=== PATIENT | female | born 1965 | race Caucasian/White ===

== ENCOUNTER → 2018-08-14 | Outpatient (CLI) | payer OTHER | END | disposition home or self-care (01) | LOC: LAB SHORT 08:19 → PLD 08:19 | DX: D36.12 Benign neoplasm of peripheral nerves and autonomic nervous system, upper limb, including shoulder (principal) | CPT/HCPCS: 88305 ==

== ENCOUNTER 2020-11-26 16:40 | Inpatient (IN) | payer OTHER ==
[~2020-11-26] VITALS: Ht 167.6 cm; Wt 71.3 kg
[2020-11-26 17:23] LABS: BASOPHILS ABSOLUTE AUTO 0.02 K/mm3 (0.00-0.23); BASOPHILS PERCENT AUTO 0 % (0-2); EOSINOPHILS PERCENT AUTO 0 % (0-6); Hematocrit 45.4 % (33.0-51.0); Hemoglobin 15.2 g/dL (11.5-16.0); IMMATURE GRAN ABSOLUTE AUTO 0.05 K/mm3 (0.00-0.10); IMMATURE GRAN PERCENT AUTO 0 % (0-1); LYMPHOCYTES ABSOLUTE AUTO 1.45 K/mm3 (0.84-5.20); LYMPHOCYTES PERCENT AUTO 12 % (21-46); MONOCYTES ABSOLUTE AUTO 0.59 K/mm3 (0.16-1.47); MONOCYTES PERCENT AUTO 5 % (4-13); Mean Corpuscular HGB 27.6 pg (26.0-34.0); Mean Corpuscular HGB Conc 33.5 g/dL (31.5-36.5); Mean Corpuscular Volume 82 fL (80-100); Mean Platelet Volume 8.9 fL (9.1-12.4); NEUTROPHILS ABSOLUTE AUTO 10.41 K/mm3 (1.96-9.15); NEUTROPHILS PERCENT AUTO 83 % (41-73); Platelet Count 230 K/mm3 (150-400); RDW Coefficient Variation 12.1 % (11.7-14.2); RDW Standard Deviation 36.9 fL (35.1-46.3); Red Blood Cell Count 5.51 M/mm3 (3.80-5.20); White Blood Cell Count 12.52 K/mm3 (4.00-11.30)
[2020-11-26] MEDS ORDERED: SERT100 PO (17:38)
[2020-11-26 17:42] LABS: Alanine Aminotransfer (ALT/SGP 32 U/L (12-78); Albumin, Blood 4.1 g/dL (3.4-5.0); Albumin/Globulin Ratio 1.1 (0.8-1.8); Alk Phos 76 U/L (50-136); Anion Gap 12 mmol/L (6-16); Aspartate Aminotrans (AST/SGOT 22 U/L (12-37); Bilirubin, Total 0.5 mg/dL (0.1-1.0); Blood Urea Nitrogen 11 mg/dL (8-24); Bun/Creatinine Ratio 20.4 (12.0-20.0); CO2, Blood 17 mmol/L (21-32); Calcium, Blood 9.8 mg/dL (8.5-10.1); Chloride, Blood 109 mmol/L (98-108); Creatinine, Blood 0.54 mg/dL (0.40-1.00); Globulin, Blood 3.9 g/dL (2.2-4.0); Glomerular Filtration Rate >60 (60-); Glucose, Blood 160 mg/dL (70-99); Potassium, Blood 3.5 mmol/L (3.5-5.5); Sodium, Blood 138 mmol/L (136-145)
[2020-11-26 17:47] LABS: Source, Urine Clean Catch
[2020-11-26 17:49] LABS: Appearance, Urine Hazy (Clear); Bilirubin, Urine Neg (Neg); Blood, Urine Neg (Neg); Color, Urine Yellow (P-Yellow); Glucose Qualitative, Urine Neg (Neg); Ketones, Urine 4+ (Neg); Leukocyte Esterase, Urine 3+ (Neg); Nitrite, Urine Neg (Neg); Protein, Urine 1+ (Neg); Specific Gravity, Urine 1.015 (1.003-1.022); Urobilinogen, Urine NORM (Normal)
[2020-11-26 17:57] LABS: White Blood Cells, Urine TNTC /hpf (0-5)
[2020-11-26 17:58] LABS: Bacteria Many /hpf; Red Blood Cells, Urine 0-2 /hpf (0-2); Squamous Epithelial Cells Few /hpf (Few)
[2020-11-26] MEDS ORDERED: LAMO100 PO (21:24)
[2020-11-27 00:42] LABS: Influenza A, PCR Negative (NEGATIVE); Influenza B, PCR Negative (NEGATIVE); Resp Syncytial Virus, PCR Negative (NEGATIVE); SARS-Cov-2 (COVID-19) PCR, MMC Negative (NEGATIVE)
[2020-11-27 04:40] LABS: BASOPHILS ABSOLUTE AUTO 0.01 K/mm3 (0.00-0.23); BASOPHILS PERCENT AUTO 0 % (0-2); EOSINOPHILS ABSOLUTE AUTO 0.04 K/mm3 (0.00-0.68); EOSINOPHILS PERCENT AUTO 1 % (0-6); Hematocrit 42.2 % (33.0-51.0); Hemoglobin 13.7 g/dL (11.5-16.0); IMMATURE GRAN ABSOLUTE AUTO 0.02 K/mm3 (0.00-0.10); IMMATURE GRAN PERCENT AUTO 0 % (0-1); LYMPHOCYTES ABSOLUTE AUTO 1.39 K/mm3 (0.84-5.20); LYMPHOCYTES PERCENT AUTO 16 % (21-46); MONOCYTES ABSOLUTE AUTO 0.86 K/mm3 (0.16-1.47); MONOCYTES PERCENT AUTO 10 % (4-13); Mean Corpuscular HGB Conc 32.5 g/dL (31.5-36.5); Mean Corpuscular Volume 86 fL (80-100); NEUTROPHILS ABSOLUTE AUTO 6.56 K/mm3 (1.96-9.15); NEUTROPHILS PERCENT AUTO 74 % (41-73); Platelet Count 189 K/mm3 (150-400); RDW Coefficient Variation 12.7 % (11.7-14.2); RDW Standard Deviation 39.8 fL (35.1-46.3); Red Blood Cell Count 4.89 M/mm3 (3.80-5.20); White Blood Cell Count 8.88 K/mm3 (4.00-11.30)
[2020-11-27 04:57] LABS: Anion Gap 6 mmol/L (6-16); Blood Urea Nitrogen 10 mg/dL (8-24); CO2, Blood 27 mmol/L (21-32); Calcium, Blood 8.2 mg/dL (8.5-10.1); Chloride, Blood 111 mmol/L (98-108); Creatinine, Blood 0.71 mg/dL (0.40-1.00); Glomerular Filtration Rate >60 (60-); Glucose, Blood 119 mg/dL (70-99); Potassium, Blood 4.1 mmol/L (3.5-5.5); Sodium, Blood 144 mmol/L (136-145)
--- NOTE | 2020-11-27 05:47 | NUR ---
SHIFT SUMMARY S/P SBO, A/O X4, VSS, NPO SINCE ADMIT W/ SMALL SIPS OF WATER WHEN TAKING BEDTIME MEDS (SEE EMAR), LANDON CONSULTED AND SPOKE TO PT ABOUT POSSIBLE SURGERY TODAY PENDING CONDITION IN THE MORNING, PT REPORTS FEELING INCREASED ANXIETY ABOUT HAVING SURGERY AND HAS REQUESTED BE ALLOWED TO COME IN TO ASSIST W/ SURGICAL DECISIONS. PAIN WELL CONTROLLED W/ DILAUDID WALLPAPER HANGER, IV FLUIDS INFUSING, NO ACUTE CHANGES OVERNIGHT. CALL LIGHT IN REACH, WILL CONTINUE TO MONITOR AND REPORT TO ONCOMING DAY RN.
--- NOTE | 2020-11-27 18:18 | NUR ---
SHIFT SUMMARY PT A&OX4, VSS. NPO/SBO. DENIES N&V. DENIES BELCHING OR FLATUS. PAIN MANAGED WITH KENNEL STAFF MEMBER DEMAND. AMBULATING INDEPENDENTLY IN ROOM, AND IN HALLWAY, TO BRP. VOIDING WELL. KPAD ON. TCDB & I.S. EDU & ENC, PT DEMONSTRATED. WILL REPORT TO ONCOMING SANJU RN.
[2020-11-28 05:29] LABS: BASOPHILS ABSOLUTE AUTO 0.01 K/mm3 (0.00-0.23); BASOPHILS PERCENT AUTO 0 % (0-2); EOSINOPHILS ABSOLUTE AUTO 0.05 K/mm3 (0.00-0.68); EOSINOPHILS PERCENT AUTO 1 % (0-6); Hematocrit 38.5 % (33.0-51.0); Hemoglobin 12.1 g/dL (11.5-16.0); IMMATURE GRAN ABSOLUTE AUTO 0.01 K/mm3 (0.00-0.10); IMMATURE GRAN PERCENT AUTO 0 % (0-1); LYMPHOCYTES ABSOLUTE AUTO 1.48 K/mm3 (0.84-5.20); LYMPHOCYTES PERCENT AUTO 25 % (21-46); MONOCYTES ABSOLUTE AUTO 0.59 K/mm3 (0.16-1.47); MONOCYTES PERCENT AUTO 10 % (4-13); Mean Corpuscular HGB 27.5 pg (26.0-34.0); Mean Corpuscular HGB Conc 31.4 g/dL (31.5-36.5); Mean Corpuscular Volume 88 fL (80-100); Mean Platelet Volume 8.8 fL (9.1-12.4); NEUTROPHILS ABSOLUTE AUTO 3.77 K/mm3 (1.96-9.15); NEUTROPHILS PERCENT AUTO 64 % (41-73); Platelet Count 157 K/mm3 (150-400); RDW Coefficient Variation 12.7 % (11.7-14.2); RDW Standard Deviation 40.9 fL (35.1-46.3); White Blood Cell Count 5.91 K/mm3 (4.00-11.30)
[2020-11-28 06:01] LABS: Anion Gap 3 mmol/L (6-16); Blood Urea Nitrogen 9 mg/dL (8-24); Bun/Creatinine Ratio 14.2 (12.0-20.0); CO2, Blood 29 mmol/L (21-32); Calcium, Blood 7.8 mg/dL (8.5-10.1); Chloride, Blood 109 mmol/L (98-108); Creatinine, Blood 0.64 mg/dL (0.40-1.00); Glomerular Filtration Rate >60 (60-); Glucose, Blood 89 mg/dL (70-99); Potassium, Blood 3.7 mmol/L (3.5-5.5); Sodium, Blood 141 mmol/L (136-145)
--- NOTE | 2020-11-28 07:27 | NUR ---
SHIFT SUMMARY: MARCUS IS A&OX4. VSS, NO ACUTE EVENTS OVERNIGHT. NO DIFFICULTIES WITH URINATION. SHE REPORTS SLEEPING INTERMITTNETLY DURING THE NIGHT. 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 SHE DID HAVE POSTIVIE BT IN THREE QUADRANTS THIS AM. SHE IS INDEPENDENT IN THE ROOM. SHE IS LYING IN BED WITH HER CALL LIGHT IN REACH. WILL REPORT TO DAY SHIFT RN.
--- NOTE | 2020-11-28 18:32 | NUR ---
SHIFT SUMMARY PT A&OX4, VSS. SBO, NPO, DENIES N&V, DENIES FLATUS, MILD DISTENSION, VOIDING, AMBULATING IN ROOM, TO BRP AND IN HALLWAY. PAIN MANAGED WITH MOTEL MAID. WILL REPORT TO ONCOMING NOC RN.
--- NOTE | 2020-11-29 03:19 | NUR ---
MARCUS REPORTS INCREASED ABDOMINAL PRESSURE, DISTENSION AND PAIN. SHE REMAINS UNCERTAIN IF SHE WANTS TO HAVE SURGICAL INTERVENTION OR NOT. SHE IS BELCHING, BUT HAS NOT PASSED GAS.
--- NOTE | 2020-11-29 05:13 | NUR ---
SHIFT SUMMARY: MARCUS IS A&OX4. VSS, NO ACUTE EVENTS OVERNIGHT. SHE REPORTS ADEQUATE PAIN CONTROL WITH THE DILAUDID BIOINFORMATICS ENGINEER. SHE REMAINS NPO EXCEPT FOR HER NIGHTTIME MEDICATIONS. SHE IS INDEPENDENT IN THE ROOM. IV TO L AC PATENT. SHE IS USING THE KPAD FOR COMFORT. SHE IS LYING IN BED WITH HER CALL LIGHT IN REACH. WILL REPORT TO DAY SHIFT RN.
--- NOTE | 2020-11-29 07:37 | NUR ---
ATTEMPTED TO PLACE NG TUBE. UNABLE TO ADVANCE TUBE INTO EITHER NARE DESPITE MULTIPLE ATTEMPS. PT TOLERATED ATTEMPTS WELL. PHYSICIAN NOTIFIED.
--- NOTE | 2020-11-29 09:15 | NUR ---
PLACED SCUDS ON PT. EXPLAINED REASON FOR THEM AND HOW TO TAKE THEM OFF FOR AMBULATING.
--- NOTE | 2020-11-29 14:53 | NUR ---
History, Chart, Medications and Allergies reviewed before start of procedure.Lungs clear T/O to Auscultation. Pre-Op teaching done. Pt verbalizes understanding.
--- NOTE | 2020-11-29 15:19 | NUR ---
PT TO OR.
--- NOTE | 2020-11-29 17:28 | NUR ---
POST OP ARRIVED FROM PACU VIA BED, AWAKE, A&OX3, DENIES ANY NEED FOR PAIN MEDS AT THIS TIME, DENIES ANY NAUSEA, ABD SOFT, LAP INCISIONS W/ SKIN GLUE NOTED, C/D/I, SENIOR SQL DATABASE DEVELOPER DILAUDID RE-STARTED, NO ACUTE CHANGES THIS SHIFT.
--- NOTE | 2020-11-30 06:35 | NUR ---
POD 1 S/P LUIS. PT VSS T/O NIGHT. INCISIONS CDI. PAIN MGD W/CRITICAL POWER TECHNICIAN W/REP RELIEF. ABD REMAINS MILDLY DISTENDED, BT HYPO, PT REP NO FLATUS YET. PT GENESIS SIPS AND ICE CHIPS, NO N/V. PT UP INDEP IN ROOM, GENESIS WELL. AMB ENC TODAY PT GENESIS.
--- NOTE | 2020-11-30 10:25 | NUR ---
REPORTS PASSING GAS, AMBULATING, TOLERATING CLEAR LIQUIDS WELL.
--- NOTE | 2020-11-30 17:31 | NUR ---
TOLERATRED CLEAR LIQUIDS WELL, REGULAR DINNER ORDERED PER DR. PERRY, AMBULATED X3, PASSING FLATUS, PT HAS DENIED ANY NEED FOR PAIN MEDS T/O SHIFT, NO ACUTE CHANGES THIS SHIFT.
--- NOTE | 2020-12-01 06:30 | NUR ---
POD 2 S/P LUIS. PT VSS T/O NIGHT. INCISIONS CDI W/BRUISING NOTED AROUND UMBULICUS AND LL SITES. PT GENESIS REG PO, NO N/V, REP PASSING FLATUS, HAD 1 SMALL BM THIS SHIFT. PT REP PAIN MINIMAL, DENIED NEED FOR PAIN MEDS. PT ANB INDEP IN HALLS, GENESIS WELL.
[2020-12-01] MEDS ORDERED: HYDR1TAB94 PO (10:15)
--- NOTE | 2020-12-01 13:58 | NUR ---
DISCHARGE PT DISCHARGED HOME FROM UNIT AT APROX [id number]. PT GIVEN WRITTEN AND VERBAL DISCHARGE INSTUCTIONS AND VERBALIZED UNDERSTANDING OF THESE INSTRUCTIONS. IV REMOVED, TOLERATED WELL. DECLINED WHEELCHAIR TO CAR. WRITTEN RX FOR PAIN MEDICATION GIVEN TO PT.
== END 2020-12-01 13:41 | disposition home or self-care (01) | DRG 337 ==
LOC: ER 16:40 → SURS 16:41
PROVIDERS: Emergency Medicine; Internal Medicine; Nurse Practitioner Acute Care; ADMIT Surgery
PROC: 0DNU4ZZ Release Omentum, Percutaneous Endoscopic Approach (ICD-10-PCS; principal; 2019-11-29)
DX: K56.50 Intestinal adhesions [bands], unspecified as to partial versus complete obstruction (principal); Z96.649 Presence of unspecified artificial hip joint; Z87.891 Personal history of nicotine dependence; F41.9 Anxiety disorder, unspecified; F32.9 Major depressive disorder, single episode, unspecified; Z20.828 Contact with and (suspected) exposure to other viral communicable diseases
CPT/HCPCS: 0241U; 36415; 74177; 80048; 80053; 81001; 83605; 83690; 85025; 87086; 96361; 96365; 96366; 96374-59; 96375; 96375-59; 96376; 99285-25; A9270; G0378; J0690; J0696; J1100; J1170; J1885; J2060; J2250; J2270; J2405; J2704; J2710; J3010; J3480; J7030; J7040; J7050; J7120; Q9967

== ENCOUNTER → 2022-10-25 | Outpatient (CLI) | payer OTHER ==
[~2022-10-25] MED LIST: HYDR1TAB94 PO; LAMO100 PO; SERT100 PO
== END | disposition home or self-care (01) ==
LOC: LAB SHORT 11:16
DX: D04.62 Carcinoma in situ of skin of left upper limb, including shoulder (principal)
CPT/HCPCS: 88305

== ENCOUNTER 2024-05-17 13:45 | Emergency (ER) | payer OTHER ==
[~2024-05-17] VITALS: Ht 167.6 cm; Wt 63.5 kg
[2024-05-17 15:15] VITALS: BP 109/74
[2024-05-17 15:17] LABS: BASOPHILS ABSOLUTE AUTO 0.02 K/mm3 (0.00-0.23); BASOPHILS PERCENT AUTO 0 % (0-2); EOSINOPHILS ABSOLUTE AUTO 0.05 K/mm3 (0.00-0.68); EOSINOPHILS PERCENT AUTO 1 % (0-6); Hematocrit 45.6 % (33.0-51.0); Hemoglobin 14.8 g/dL (11.5-16.0); IMMATURE GRAN ABSOLUTE AUTO 0.02 K/mm3 (0.00-0.10); IMMATURE GRAN PERCENT AUTO 0 % (0-1); LYMPHOCYTES ABSOLUTE AUTO 1.59 K/mm3 (0.84-5.20); LYMPHOCYTES PERCENT AUTO 27 % (21-46); MONOCYTES ABSOLUTE AUTO 0.33 K/mm3 (0.16-1.47); MONOCYTES PERCENT AUTO 6 % (4-13); Mean Corpuscular HGB 28.6 pg (26.0-34.0); Mean Corpuscular HGB Conc 32.5 g/dL (31.5-36.5); Mean Corpuscular Volume 88 fL (80-100); Mean Platelet Volume 9.2 fL (9.1-12.4); NEUTROPHILS ABSOLUTE AUTO 3.94 K/mm3 (1.96-9.15); NEUTROPHILS PERCENT AUTO 66 % (41-73); Platelet Count 171 K/mm3 (150-400); RDW Coefficient Variation 12.1 % (11.7-14.2); RDW Standard Deviation 38.9 fL (35.1-46.3); Red Blood Cell Count 5.18 M/mm3 (3.80-5.20); White Blood Cell Count 5.95 K/mm3 (4.00-11.30)
[2024-05-17 15:39] LABS: Albumin, Blood 3.9 g/dL (3.4-5.0); Albumin/Globulin Ratio 1.1 (0.8-1.8); Bilirubin, Total 0.4 mg/dL (0.1-1.0); Bun/Creatinine Ratio 23.7 (12.0-20.0); Creatinine, Blood 0.59 mg/dL (0.40-1.00); Globulin, Blood 3.5 g/dL (2.2-4.0); Potassium, Blood 3.7 mmol/L (3.5-5.5); Thyroid Stimulating Hormone 1.15 uIU/mL (0.360-4.800); Total Protein, Blood 7.4 g/dL (6.4-8.2)
== END 2024-05-17 16:35 | disposition home or self-care (01) ==
LOC: ER 13:45
PROVIDERS: Family Medicine
DX: R00.2 Palpitations (principal); R00.0 Tachycardia, unspecified; Z88.8 Allergy status to other drugs, medicaments and biological substances; Z79.899 Other long term (current) drug therapy
CPT/HCPCS: 80053; 83735; 84443; 85025; 93005; 93010; 99285-25

== ENCOUNTER 2025-03-20 06:40 | Day surgery (SDC) | payer OTHER ==
[~2025-03-20] VITALS: Ht 167.6 cm; Wt 67.7 kg
[2025-03-20] MEDS ORDERED: LISDEXAMFETAMIN40 MG PO (07:13)
[2025-03-20] MEDS ORDERED: ROSUVASTATIN CA10 MG PO (07:13)
[2025-03-20] MEDS ORDERED: ALPRAZOLAM0.5 M1 PO (07:14)
[2025-03-20] MEDS ORDERED: PROG100 PO (07:14)
[2025-03-20] MEDS ORDERED: propofoL 50 ML IV ONE (07:45)
[2025-03-20] MEDS ORDERED: Lactated Ringer's 1,000 ML IV ONE ×2 (07:45→07:52)
[2025-03-20 09:15] VITALS: BP 119/70
== END 2025-03-20 09:00 | disposition home or self-care (01) ==
LOC: ORSCSDS 06:40
PROVIDERS: Surgery
PROC: 0DBP8ZX Excision of Rectum, Via Natural or Artificial Opening Endoscopic, Diagnostic (ICD-10-PCS; principal; 2025-03-20 08:00)
PROC: 0DBC8ZX Excision of Ileocecal Valve, Via Natural or Artificial Opening Endoscopic, Diagnostic (ICD-10-PCS; principal; 2025-03-20 08:00)
PROC: 0DBG8ZX Excision of Left Large Intestine, Via Natural or Artificial Opening Endoscopic, Diagnostic (ICD-10-PCS; principal; 2025-03-20 08:00)
PROC: 0DBL8ZX Excision of Transverse Colon, Via Natural or Artificial Opening Endoscopic, Diagnostic (ICD-10-PCS; principal; 2025-03-20 08:00)
PROC: 0DBF8ZX Excision of Right Large Intestine, Via Natural or Artificial Opening Endoscopic, Diagnostic (ICD-10-PCS; principal; 2025-03-20 08:00)
DX: Z12.11 Encounter for screening for malignant neoplasm of colon (principal); K52.9 Noninfective gastroenteritis and colitis, unspecified; K62.89 Other specified diseases of anus and rectum; K64.4 Residual hemorrhoidal skin tags; K57.30 Diverticulosis of large intestine without perforation or abscess without bleeding; E78.5 Hyperlipidemia, unspecified; F32.A Depression, unspecified; M19.90 Unspecified osteoarthritis, unspecified site; R00.0 Tachycardia, unspecified; Q65.89 Other specified congenital deformities of hip; Z87.891 Personal history of nicotine dependence; Z79.899 Other long term (current) drug therapy
CPT/HCPCS: 88305; J2704; J7120